=== PATIENT | male | born 1985 | race Caucasian/White ===

== ENCOUNTER → 2022-12-08 | Day surgery (SDC) | payer OTHER ==
[~2022-12-08] MED LIST: ACETAMINOPHEN 1000 MG/100 ML 100 ML IV ONE; DEXAMETHASONE SOD PHOS INJ 4 MG/ML SDV ONE; FENTANYL CITRATE/PF 100MCG/2 ML INJ ONE; HYDROCODONE/APAP 5MG-325MG TAB ONE; KETOROLAC TROMETHAMINE 30 MG/ML VIAL ONE; LACTATED RINGER'S 1,000 ML ONE; LIDOCAINE HCL 2% LOCAL INJ 5 ML SDV VIAL INJ ONE; ONDANSETRON HCL INJ 2MG/ML 2ML 2 MG/ML VIAL ONE; POVIDONE IODINE 0.05% 0.05 % ML PO ONE; PROPOFOL IV EMULSION 10 MG/ML 20 ML VIAL ONE; SEVOFLURANE INHAL SOLN 250 ML PEN BTL ONE
[2022-12-08] MEDS: FENTANYL CITRATE/PF 100MCG/2 ML INJ ONE ×4 (15:00→15:15)
[2022-12-08 15:50] VITALS: BP 136/82; PULSE 78; RESP 17; O2SAT 97
== END | disposition home or self-care (01) ==
LOC: OR 12:04
PROVIDERS: ATTEND Specialist
DX: M67.461 Ganglion, right knee (principal)
CPT/HCPCS: 29999; J0131; J0690; J1100; J1885; J2001; J2405; J2704; J3010; J7121